=== PATIENT | female | born 1965 | race Hispanic/Latino ===

== ENCOUNTER 2017-03-25 10:04 | Emergency (ER) | payer BC ==
[~2017-03-25] VITALS: Ht 149.9 cm; Wt 89.3 kg
[2017-03-25 10:36] LABS: HEMATOCRIT 43.4 % (36.0-46.0); HEMOGLOBIN 14.5 G/DL (11.9-15.5); MCH 29.2 PG (29.0-34.0); MCHC 33.4 G/DL (30.0-36.0); MCV 87.5 FL (83-99); PLATELET COUNT 267 K/uL (156-360); RBC DIS.WIDTH-CV 12.7 % (11.8-14.6); RBC DIS.WIDTH-SD 40.8 % (39-53); RED BLOOD COUNT 4.96 M/uL (3.80-5.20); WHITE BLOOD COUNT 10.6 K/uL (4.1-10.2)
[2017-03-25 10:47] LABS: ALBUMIN 4.3 g/dL (3.2-4.8); CHLORIDE 109 mEq/L (99-109); SODIUM 138 mEq/L (136-147)
[2017-03-25 10:50] LABS: GLUCOSE 130 mg/dL (70-99); TOTAL PROTEIN 8.2 g/dL (6.4-8.3)
[2017-03-25 10:52] LABS: TOTAL BILIRUBIN 0.8 mg/dL (0.0-1.0)
[2017-03-25 10:53] LABS: ALKALINE PHOSPHATASE 117 IU/L (3-129); CREATININE 0.8 mg/dL (0.6-1.3)
[2017-03-25 10:54] LABS: GFR ESTIMATE (CALCULATED) > 59 mL/min/; UREA NITROGEN (BUN) 15 mg/dL (9-23)
[2017-03-25 10:55] LABS: AST (GOT) 38 IU/L (2-34)
[2017-03-25 10:56] LABS: ALT (GPT) 29 IU/L (3-49)
[2017-03-25 12:50] LABS: APPEARANCE SL.HAZY ((CLEAR)); BILIRUBIN NEGATIVE; BLOOD SMALL; COLOR YELLOW ((YELLOW)); GLUCOSE (STRIP) NEGATIVE; KETONES NEGATIVE; LEUKOCYTES LARGE; NITRITE NEGATIVE; PROTEIN (STRIP) 30; SPECIFIC GRAVITY 1.028 (1.000-1.030); UROBILINOGEN 0.2 MG/DL (0.2-1.0)
[2017-03-25 12:56] LABS: BACTERIA RARE /HPF; CALCIUM OXALATE CRYSTALS 2+ /HPF; EPITHELIAL CELLS RARE /HPF; HYALINE CASTS 0-5 /LPF; MUCUS 3+ /LPF; UCUL ADDED? YES; WHITE BLOOD CELLS 15-20 /HPF (0-5)
[2017-03-25] MEDS ORDERED: CIPRO250 MG PO (16:32)
[2017-03-25] MEDS ORDERED: ZOFRAN ODT4 MG PO (16:34)
[2017-03-25 16:47] VITALS: BP 139/76
== END 2017-03-25 16:48 | disposition home or self-care (01) ==
LOC: EME 10:04
DX: R11.2 Nausea with vomiting, unspecified (principal); R19.7 Diarrhea, unspecified; N39.0 Urinary tract infection, site not specified; E05.90 Thyrotoxicosis, unspecified without thyrotoxic crisis or storm
CPT/HCPCS: 71046; 74176; 80053; 81003; 85027; 87077; 87086; 87186; 99281; 99285; J2405; J7030